=== PATIENT | female | born 1985 | race Caucasian/White ===

== ENCOUNTER 2024-08-28 13:47 | Emergency (ER) | payer BC ==
[2024-08-28] MEDS: Diphtheria,Pertussis(Acell),Tetanus Vaccine 0.5 ML Syringe IM ONE (14:02)
== END 2024-08-28 14:06 | disposition home or self-care (01) ==
LOC: DL.ED 13:47
DX: S01.322A Laceration with foreign body of left ear, initial encounter (principal); Z23 Encounter for immunization; X58.XXXA Exposure to other specified factors, initial encounter
CPT/HCPCS: 90471; 90715; 99282; 99282-25